=== PATIENT | male | born 1995 | race Caucasian/White ===

== ENCOUNTER 2019-09-02 13:51 | Outpatient (CLI) | payer BC, SELFPAY ==
--- NOTE | ~2019-09-02 | XR_ITS ---
[id number] DATE: 09/02/2019 14:22 INDICATION: Recent fall. Anterior lower right rib pain TECHNIQUE: PA chest. 4 views of the right ribs. COMPARISON: None FINDINGS: Normal heart size. No hilar or mediastinal enlargement. No pulmonary infiltrate or consolid ation, pleural effusion or pulmonary vascular congestion or pneumothorax. No right rib fracture or bone destruction is detected. IMPRESSION: Negative Reviewed, dictated and finalized at [facility]. Reviewed, dictated and finalized at [facility]. IMPRESSION: Negative
== END 2019-09-02 13:52 | disposition home or self-care (01) ==
PROVIDERS: PCP Physician Assistant; Visit Provider Physician Assistant
DX: R07.81 Pleurodynia (principal)
CPT/HCPCS: 71101